=== PATIENT | male | born 1995 | race Asian ===

== ENCOUNTER 2018-05-03 19:10 | Emergency (ER) | payer OTHER ==
[2018-05-03 19:24] VITALS: BP 114/67
--- NOTE | 2018-05-03 19:40 | UC ---
Laceration HPI - HPI Summary HPI Summary: 23 yo male presents with laceration to right pinky finger. He tells me that about 2 hours [employer] he was trying to open a tin can and sliced his right 5th finger. Applied a bandage and monitored the area - still bleeding, so he came to . Thinks his tetanus is up to date because he is a student at [employer] and needed this for admission. - History Of Current Complaint Chief Complaint: UCLaceration Stated Complaint: FINGER LAC Time Seen by Provider: 05/03/18 19:24 Hx Obtained From: Patient Laceration Location: Finger Mechanism Of Injury: Sharp Trauma Onset/Duration: Sudden Onset Severity: Mild Pain Intensity: 4 Pain Scale Used: 0-10 Numeric - Allergies/Home Medications Allergies/Adverse Reactions: Allergies Allergy/AdvReac Type Severity Reaction Status Date / Time No Known Allergies Allergy Verified 05/03/18 19:24 Home Medications: Home Medications NK [No Home Medications Reported] 05/03/18 [History Confirmed 05/03/18] PMH/Surg Hx/FS Hx/Imm Hx - Additional Past Medical History Additional PMH: None Previously Healthy: Yes - Surgical History Surgical History: None - Family History Known Family History: Positive: None - Social History Occupation: Student Lives: Dormitory/Roommates Alcohol Use: Occasionally Substance Use Type: None Smoking Status (MU): Never Smoked Tobacco - Immunization History Most Recent Tetanus Shot: unknown, thinks more than 5 years Review of Systems Constitutional: Negative Skin: Other - Right 5th finger laceration Respiratory: Negative Cardiovascular: Negative Neurovascular: Negative Neurological: Negative Psychological: Negative All Other Systems Reviewed And Are Negative: Yes Physical Exam - Summary Physical Exam Summary: GENERAL: NAD. WDWN. No pain distress. SKIN: 1.5cm linear superficial laceration to radial aspect of right 5th finger. Good approximation at rest. Mild active bleeding. No streaking or drainage. NECK: Supple. Nontender. No lymphadenopathy. CHEST: No accessory muscle use. Breathing comfortably and in no distress. CV: Pulses intact MSK: FROM right 5th digit. NEURO: Alert. CN II-XII grossly intact. PSYCH: Age appropriate behavior. Triage Information Reviewed: Yes Vital Signs: Initial Vital Signs Temp 98.2 F 05/03/18 19:17 Pulse 63 05/03/18 19:17 Resp 16 05/03/18 19:17 BP 114/67 05/03/18 19:17 Pulse Ox 98 05/03/18 19:17 Vital Signs Reviewed: Yes Laceration Repair - Laceration Repair 1 Description: Linear Laceration Size After Repair: Length (cm) - 1.5 Cleansing Completed Via Routine Prep: Yes Closure Material: Skin Adhesive Closure Method: Single Layer Laceration Course/Dx - Course/Dx Course Of Treatment: Right 5th digit laceration. Good approximation at rest. Lac irrigated with 250mL NS. Dermabond applied and lac bandaged with telfa and tubgauze. - Differential Dx - Laceration/Wound Provider Diagnoses: Right 5th digit laceration Discharge - Sign-Out/Discharge Documenting (check all that apply): Patient Departure - Discharge Plan Condition: Stable Disposition: HOME Patient Education Materials: Skin Adhesive Care (ED) Referrals: [facility],Jacky [Primary Care Provider] - Additional Instructions: If you develop a fever, shortness of breath, chest pain, new or worsening symptoms - please call your PCP or go to the ED. - Billing Disposition and Condition Condition: STABLE Disposition: Home
== END 2018-05-03 20:04 | disposition home or self-care (01) ==
LOC: UCEAST 19:10
DX: S61.216A Laceration without foreign body of right little finger without damage to nail, initial encounter (principal); W26.8XXA Contact with other sharp object(s), not elsewhere classified, initial encounter; Y93.89 Activity, other specified; Y92.9 Unspecified place or not applicable
CPT/HCPCS: 12001; 99201; G0463